=== PATIENT | male | born 1990 | race Caucasian/White ===

== ENCOUNTER 2017-01-17 09:00 | Day surgery (SDC) | payer BC ==
--- NOTE | ~2017-01-17 | EGD ---
EGD REPORT [facility] [address] [place] [address] NAME: KEVIN MARQUEZ : [birth year] STATUS : [facility]#: [id number] AGE: 26 ADM/REG DATE : 01/17/17 MR#: [id number] REPORT SERV DATE: 01/17/17 DICTATED BY: MYRA CARROLL DATE: 01/17/17 REPORT STATUS : Draft [facility]: [facility] DATE: 01/17/17 [facility]oscopy Center Patient Name: Kevin Marquez Date of : 1990 Attending MD: MYRA CARROLL MD Procedure Date No Time: 01/17/2017 Procedure: Colonoscopy Indications: Clinically significant diarrhea of unexplained origin, Rectal bleeding, FH of Colonic Polyps - 1st degree relative Medicines: as per anesthesia Complications: No immediate complications. Procedure: Pre-Anesthesia Assessment: - ASA Grade Assessment: II - A patient with mild systemic disease. After I obtained informed consent, the scope was passed under direct vision. Throughout the procedure, the patient's blood pressure, pulse, and oxygen saturations were monitored continuously. The PCF [id number] was introduced through the anus and advanced to the cecum, identified by appendiceal orifice and ileocecal valve. The colonoscopy was performed without difficulty. The patient tolerated the procedure. The quality of the bowel preparation was adequate to identify polyps. Findings: The perianal and digital rectal examinations were normal. A few small-mouthed diverticula were found in the descending colon. Internal hemorrhoids were found during endoscopy and were mild. Four biopsies were obtained in the rectum and in the ascending colon with cold forceps for histology. Impression: - Diverticulosis in the descending colon. - Internal hemorrhoids. - Four biopsies were obtained in the rectum and in the ascending colon. Recommendation: - Await pathology results. - Repeat colonoscopy for surveillance based on pathology results. Procedure Code(s): --- Professional --- 16271, Colonoscopy, flexible, proximal to splenic flexure; with biopsy, single or multiple EGD REPORT [facility] [address] [place] [address]. [address] NAME: KEVIN MARQUEZ : [birth year] STATUS : [facility]#: [id number] AGE: 26 ADM/REG DATE : 01/17/17 MR#: [id number] REPORT SERV DATE: 01/17/17 DICTATED BY: MYRA CARROLL. DATE: 01/17/17 REPORT STATUS : Draft TRANSCRIBED BY: [employer] SERVICES DATE: 01/17/17 Diagnosis Code(s): --- Professional --- K64.8, Other hemorrhoids K57.30, Diverticulosis of large intestine without perforation or abscess without bleeding R19.7, Diarrhea, unspecified K62.5, Hemorrhage of anus and rectum Z83.71, Family history of colonic polyps CPT copyright 2013 [employer]. All rights reserved. The codes documented in this report are preliminary and upon health analytics consultant review may be revised to meet current compliance requirements. MYRA CARROLL MD 01/17/2017 11:16 AM This report has been signed electronically. Number of Addenda: 0 Note Initiated On: 01/17/2017 10:39 AM Scope Withdrawal Time 0 hours 8 minutes 47 seconds [address] [place] [address]
--- NOTE | ~2017-01-17 | PREOPHP ---
PreOp History and Physical [facility] [address] [place]. [address] NAME: ALEXANDER MARQUEZ : [birth year] STATUS : [facility]#: [id number] AGE: 26 ADM/REG DATE : 01/17/17 MR#: [id number] REPORT SERV DATE: 02/05/17 DICTATED BY: LISA HERNANDEZ III DATE: 02/05/17 REPORT STATUS : Draft TRANSCRIBED BY: PRABHJOT DATE: 02/05/17 HISTORY OF PRESENT ILLNESS: This 26-year-old male comes to the operating room for resection of a chronic pilonidal cyst. The patient has a pilonidal cyst which has been present since 08/2016. This is associated with intermittent drainage, infection, and bleeding. The cyst was located in the cleft area in the midline. The patient comes now for resection of this pilonidal cyst. PAST MEDICAL HISTORY: Unremarkable. Otherwise, no history of diabetes, hypertension, or cardiac or pulmonary disease. FAMILY HISTORY: Positive for colon polyps. SOCIAL HISTORY: The patient is . 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 He has occasional history of alcohol use and a history of tobacco use. REVIEW OF SYSTEMS: The patient's 14-point review of systems is otherwise unremarkable. ALLERGIES: ERYTHROMYCIN. MEDICATIONS: Tylenol and Excedrin. OBJECTIVE/PHYSICAL EXAMINATION: GENERAL: This is a pleasant obese male in no acute distress. He is alert and oriented x3. HEENT: Unremarkable. Cranial nerves II through XII are normal. LUNGS: Clear. CARDIAC: Normal. ABDOMEN: Soft and nontender. EXTREMITIES: Normal with no edema. MUSCULOSKELETAL: Over the lower back is an indurated sinus tract with some heaped up granulating tissue. This is in the cleft area. There is some surrounding induration, there is no fluctuance. VITAL SIGNS: Blood pressure 122/80, pulse 64, and temperature 98.5. ASSESSMENT: A 26-year-old male with 1. Chronic pilonidal cyst. 2. Obesity (the patient is very obese on exam). PLAN: The patient comes to the operating room now for resection of this pilonidal cyst. This procedure, the risks, benefits, and alternatives, including but not limited to the risk for bleeding, infection, pain, swelling, seroma formation, hematoma formation, wound failure, wound dehiscence requiring prolonged wound care, recurrent pilonidal cyst disease requiring further surgery, and unforeseen complications including deep venous thrombosis, pulmonary embolus, myocardial infarction, stroke, pneumonia, and have been explained to the patient prior to surgery. The expected length of recovery has been explained. The patient's questions have been answered. He understands the risks and agrees to surgery as planned. The option of continued nonoperative management has been explained. Again, the PreOp History and Physical [address] [address] NAME: ALEXANDER MARQUEZ : [birth year] STATUS : [facility] PAT#: [id number] AGE: 26 ADM/REG DATE : 01/17/17 MR#: [id number] REPORT SERV DATE: 02/05/17 DICTATED BY: LISA HERNANDEZ III DATE: 02/05/17 REPORT STATUS : Draft TRANSCRIBED BY: PRABHJOT DATE: 02/05/17 patient wishes to proceed with surgery as planned and understands the risks. Jessica/PRABHJOT Lisa Hernandez III, M.D. / [id number] CC: Vincent Doherty M.D.
[~2017-01-17 09:00] MED LIST: ADVIL PO; T PO
== END 2017-01-17 23:59 | disposition home or self-care (01) ==
LOC: DMU 09:00
PROVIDERS: Internal Medicine Gastroenterology
PROC: 0DBK8ZZ Excision of Ascending Colon, Via Natural or Artificial Opening Endoscopic (ICD-10-PCS; 2017-01-17)
PROC: 0DBP8ZX Excision of Rectum, Via Natural or Artificial Opening Endoscopic, Diagnostic (ICD-10-PCS; principal; 2017-01-17 10:00)
DX: K64.8 Other hemorrhoids (principal); K57.30 Diverticulosis of large intestine without perforation or abscess without bleeding; F17.290 Nicotine dependence, other tobacco product, uncomplicated; Z88.1 Allergy status to other antibiotic agents; Z79.899 Other long term (current) drug therapy
CPT/HCPCS: 88305